=== PATIENT | female | born 1975 | race Two or more races ===

== ENCOUNTER 2023-07-17 08:53 | Emergency (ER) | payer MEDICAID, OTHER ==
[~2023-07-17] VITALS: Ht 152.4 cm; Wt 56.5 kg
[2023-07-17 10:08] VITALS: BP 155/89; PULSE 85; RESP 18; TEMP 98.6; O2SAT 98
[2023-07-17] MEDS: KETOROLAC TROMETH 30 MG/ML 1ML VIAL IM ONE (10:47)
[2023-07-17] MEDS ORDERED: IBUP-1454 PO (10:54)
[2023-07-17] MEDS ORDERED: CYCL-837 PO (10:54)
== END 2023-07-17 10:55 | disposition home or self-care (01) ==
LOC: ER 08:53
DX: M25.562 Pain in left knee (principal); M54.50 Low back pain, unspecified
CPT/HCPCS: 96372; 99283; J1885